=== PATIENT | female | born 1960 | race Caucasian/White ===

== ENCOUNTER 2025-03-09 03:39 | Emergency (ER) | payer BC, SELFPAY ==
[2025-03-09] VITALS (34 sets, daily range): BP systolic 94–139; BP diastolic 45–82; PULSE 62–100; RESP 16–24; TEMP 36.8–37.6; O2SAT 90–98; BMI 42.0
--- NOTE | 2025-03-09 04:05 | ED_ITS ---
HPI - Abdominal Pain General Time Seen by Provider: 04:05 Date Seen: 03/09/25 Chief Complaint: Abdominal Pain Stated Complaint: lower right side pain Time Seen by Provider: 03/09/25 04:05 Source: patient Mode of arrival: ambulatory History of Present Illness HPI narrative: Melody is a 64-year-old female with no significant past medical history, surgical history of cholecystectomy in the past who presents the emergency department for evaluation of generalized body aches. Patient reports that around 12 noon she started shivering, reports generalized body aches, headaches, nausea, cough, freezing chills. Patient denies any fever, denies any chest pain or shortness of breath, patient complains of some generalized back pain, abdominal pain, no localized pain. Denies any dysuria, hematuria. No sick contacts. Patient took ibuprofen this morning prior to arrival. Review of Systems Narrative Past medical history, past surgical history, medications, allergies, family history, and social history were reviewed with the patient. No additional pertinent items. A medically appropriate review of systems was performed with pertinent positives and negatives noted in HPI, all other systems negative. Exam Narrative: Exam Narrative: General: Afebrile, in distress secondary to pain HEENT: Normocephalic, atraumatic, conjunctiva normal. MMM Neck: non-tender, supple Cardio: regular rate. regular rhythm Resp: Normal work of breathing, no respiratory distress, lungs clear bilaterally, no wheezing, rhonchi, rales Chest/Back: no visual signs of trauma, no midline tenderness, +right mid paraspinal TTP, +Right CVA TTP, right side/lateral abdominal TTP Abdomen: soft, non distension, no tenderness, no rebound, no guarding, no peritoneal signs; no abdominal wall TTP, no erythema, no fluctuance, prior healed midline abdominal surgical incision Neuro: alert and fully oriented. CN II-XII grossly intact. Grossly normal strength and sensation in all extremities. MSK: no deformities. Normal range of motion Integumentary/Skin: no rash visualized, normal color Psych: normal affect, normal behavior Const: Vital Signs, click to edit/add: Vital Signs - 24 hr 03/09/25 03:42 03/09/25 06:31 03/09/25 08:01 Temperature 98.7 F Pulse Rate 85 Pulse Rate [Left P ulse Oximeter] 100 86 Respiratory Rate 24 16 Blood Pressure 94/51 L Blood Pressure [Ri ght Upper Arm] 136/81 139/55 L Pulse Oximetry 98 95 94 Oxygen Delivery Me thod Room Air Room Air 03/09/25 08:02 Temperature Pulse Rate 85 Pulse Rate [Left P ulse Oximeter] Respiratory Rate Blood Pressure Blood Pressure [Ri ght Upper Arm] Pulse Oximetry 95 Oxygen Delivery Me thod Course Vital Signs Vital signs: Initial Vital Signs Temperature 98.7 F 03/09/25 03:42 Temperature Source Temporal Artery Scan 03/09/25 03:42 Pulse Rate 100 03/09/25 03:42 Pulse Rhythm Regular 03/09/25 03:42 Respiratory Rate 24 03/09/25 03:42 Blood Pressure 136/81 03/09/25 03:42 Blood Pressure Mean 99 03/09/25 03:42 Blood Pressure Position Sitting 03/09/25 03:42 Pulse Oximetry 98 03/09/25 03:42 Oxygen Delivery Method Room Air 03/09/25 03:42 Vital Signs Temperature 98.7 F 03/09/25 03:42 Pulse Rate 100 03/09/25 03:42 Respiratory Rate 24 03/09/25 03:42 Blood Pressure 136/81 03/09/25 03:42 Pulse Oximetry 98 03/09/25 03:42 Oxygen Delivery Method Room Air 03/09/25 03:42 Temperature 98.7 F 03/09/25 03:42 Pulse Rate 85 03/09/25 08:02 Respiratory Rate 16 03/09/25 06:31 Blood Pressure 94/51 L 03/09/25 08:01 Pulse Oximetry 95 03/09/25 08:02 Oxygen Delivery Method Room Air 03/09/25 06:31 Medications Administered Medications: Discontinued Medications Generic Name Dose Route Start Last Admin Trade Name Freq PRN Reason Stop Dose Admin Acetaminophen 1,000 mg 03/09/25 04:33 03/09/25 04:52 Acetaminophen 500 Mg Tablet PO 03/09/25 04:34 1,000 mg ONCE ONE Administration Diphenhydramine HCl 25 mg 03/09/25 04:33 03/09/25 04:53 Diphenhydramine 50 Mg/Ml Inj IVP 03/09/25 04:34 25 mg ONCE ONE Administration Hydromorphone HCl 0.5 mg 03/09/25 07:29 03/09/25 07:49 Hydromorphone 0.5 Mg/0.5 Ml Inj IVP 03/09/25 07:30 0.5 mg ONCE ONE Administration Sodium Chloride 1,000 mls @ 1,000 mls/hr 03/09/25 04:45 03/09/25 06:27 0.9 % Sodium Chloride 1000 Ml IV 03/09/25 05:44 Infused .Q1H IOANA Infusion Metoclopramide HCl 10 mg 03/09/25 04:33 03/09/25 04:53 Metoclopramide Hcl 5 Mg/Ml Inj IVP 03/09/25 04:34 10 mg ONCE ONE Administration MDM - Abdominal Pain MDM Narrative Medical decision making narrative: Melody is a 64-year-old female with no significant past medical history, surgical history of cholecystectomy in the past who presents the emergency department for evaluation of generalized body aches, chills. Upon arrival patient is nontoxic appearing, afebrile, in distress secondary to pain. Patient hemodynamically stable vital signs within normal limits. Differential diagnosis includes but is not limited to viral illness versus influenza/COVID/RSV versus appendicitis versus cystitis versus pyelonephritis versus nephrolithiasis among others. Upon arrival IV was established, comprehensive labs, urinalysis performed. Patient was treated with Tylenol, 1 L IV fluid bolus, Reglan, Benadryl. I personally reviewed interpreted chest x-ray which is unremarkable with no focal infiltrate, pleural effusion, pneumothorax. Comprehensive labs remarkable for leukocytosis with white blood cell count of 14.9, hemoglobin 13.6, normal lactic acid of 1.5, sodium 132, potassium 3.7, chloride 103, no transaminitis, normal lipase, bilirubin slightly elevated 2.0. Urinalysis with no evidence of acute infection. Negative viral testing for implants the/COVID. I personally reviewed and interpreted CT scan of the abdomen pelvis. Please see radiology report for complete details. Findings include pancreatic mass, deep subcutaneous fluid collection in anterior abdominal wall. This does not contain gas, could represent hematoma or seroma. Abscess is not excluded. Ventral hernia with significant amount of small and large bowel no evidence of incarceration obstruction, or necrosis. On re-evaluation patient with ongoing discomfort was treated with IV Dilaudid for pain. I discussed results with patient, will try to get MRI of the abdomen this morning if possible. On examination patient with no anterior abdominal wall tenderness to palpation, no evidence of erythema. Given patient's clinical presentation, leukocytosis, CT findings I discussed patient management with hospitalist Dr. Lancaster who tentatively is willing to accept the patient. Would like Surgery to evaluate patient and review images. I discussed this patient management with Dr. Olson of surgery who is on her way to the operating room but will evaluate patient in review images after surgery. No prior CT imaging to compare to. Discussed results and plan with patient. Patient signed out to morning provider pending possible MRI, final disposition and re- discussion with hospitalist, surgery. Medical Records Attestation: I reviewed the patient's medical records. Lab Data Attestation: I reviewed the patient's lab results. Labs: Lab Results 03/09/25 03/09/25 03/09/25 Range/Units 03:50 04:35 04:55 WBC 14.93 H (4.50-11.00) K/uL RBC 4.39 (4.00-5.20) m/uL Hgb 13.6 (12.0-16.0) gm/dL Hct 39.7 (33.0-51.0) % MCV 90 (80-100) fL MCH 31 (26-34) pg MCHC 34 (32-36) gm/dL Plt Count 195 (140-440) K/uL Neut % (Auto) 84.0 H (42.0-72.0) % Lymph % (Auto) 6.5 L (20-44) % [place] % (Auto) 7.8 (0.0-11.0) % Eos % (Auto) 0.3 (0.0-7.0) % Baso % (Auto) 0.1 (0.0-3.0) % Neut # (Auto) 12.50 H (1.7-7.0) K/uL Lymph # (Auto) 1.00 (0.90-2.90) K/uL [place] # (Auto) 1.20 H (0.00-0.90) K/UL Eos # (Auto) 0.00 (0.00-0.50) K/uL Baso # (Auto) 0.00 (0.00-0.30) K/uL Abs Immat Gran (auto) 0.20 (0.00-0.30) K/uL Imm/Tot Granulo (auto) 1.3 % Sodium 132 L (135-149) mmol/L Potassium 3.7 (3.6-5.1) mmol/L Chloride 103 (96-114) mmol/L Carbon Dioxide 22 (20-32) mmol/L Anion Gap 7 (7-15) mEq/L BUN 8 (7-30) mg/dL Creatinine 0.8 (0.5-1.5) mg/dL Estimated Creat Clear 59.40 Estimated GFR 82 ml/min Glucose 131 H (60-115) mg/dL Lactate 1.5 (0.5-1.9) mmol/L Calcium 9.5 (8.4-10.6) mg/dL Total Bilirubin 2.0 H (0.1-1.5) mg/dL AST 35 (12-35) U/L ALT 26 (4-35) U/L Alkaline Phosphatase 109 (40-150) U/L Total Protein 7.2 (6.0-8.3) g/dL Albumin 4.0 (3.3-5.0) g/dL Lipase 108 (23-300) U/L Urine Color Yellow (Yellow) Urine Appearance Clear (Clear) Urine pH >= 9.0 H (5.0-8.5) Ur Specific [place] 1.015 (1.000-1.030) Urine Protein 1+ A (Negative) Urine Glucose (UA) Negative (Negative) Urine Ketones Negative (Negative) Urine Blood Negative (Negative) Urine Nitrite Negative (Negative) Urine Bilirubin Negative (Negative) Urine Urobilinogen 1.0 (0.2-1.0) Ur Leukocyte Esterase 1+ A (Negative) Urine RBC 0-2 (0-2) Urine WBC 0-2 (0-5) Ur Squamous Epith Cells Few (None-Few) Urine Bacteria Few A (None) SARS-CoV-2 (PCR) Negative SARS-CoV-2 (Negative) Influenza Type A (PCR) Negative PCR FLU A (Negative) Influenza Type B (PCR) Negative PCR FLU B (Negative) Imaging Data Chest x-ray: Attestation: I have reviewed the pertinent imaging results. Radiologist's impression: Patient: Melody Cummings MR#: [id number] : 1960 Acct:[id number] Loc: ED Service Date: 03/09/[address]: Ordering Physician: Mellisa Daniels M.D. Date of Service: 03/09/25 Procedure(s): XR chest 2V Accession Number(s): [id number] cc: Mellisa Daniels M.D.~ For Patients: As a result of the Cures Act, medical imaging exams and procedure reports are released immediately into your electronic medical record. You may view this report before your referring provider. If you have questions, please contact your health care provider. INDICATION: Cough COMPARISON: None TECHNIQUE: PA and lateral views of the chest were acquired FINDINGS: TUBES AND LINES: None. HEART AND MEDIASTINUM: Top-normal size heart. Tortuous thoracic aorta.. LUNGS AND PLEURAL SPACES: The lungs appear normal.The pleural spaces are unremarkable. OSSEOUS STRUCTURES: Age-appropriate appearance. No acute focal finding. IMPRESSION: Top-normal size heart. No evidence of active pulmonary disease. Dictated by Venancio Duke MD @ 03/09/2025 5:07:13 AM (Electronically Signed) CT scan - abdomen: Attestation: I have reviewed the pertinent imaging results. Radiologist's impression: Ordering Physician: Mellisa Daniels M.D. Date of Service: 03/09/25 Procedure(s): CT abdomen pelvis w con Accession Number(s): [id number] cc: Mellisa Daniels M.D.; Provider,Not a Local~ For Patients: As a result of the Cures Act, medical imaging exams and procedure reports are released immediately into your electronic medical record. You may view this report before your referring provider. If you have questions, please contact your health care provider. INDICATION: Abdominal pain. Chills. COMPARISON: None TECHNIQUE: CT examination of the abdomen and pelvis was performed following the uneventful intravenous administration of 95 cc of Isovue 370. Thin section axial images were obtained from the lung bases through the pubic symphysis. Oral contrast was not administered. Please note that all CT scans at this facility use dose modulation, iterative reconstruction, and/or weight-based dosing when appropriate to reduce radiation dose to as low as reasonably achievable. FINDINGS: LUNG BASES: Minimal bibasilar subsegmental atelectasis.Heart size top-normal at the lung bases. Small hiatal hernia. LIVER/BILIARY SYSTEM:The liver is normal in size and configuration. There is no focal mass and there is no intra- or extra hepatic biliary ductal dilatation.There has been a cholecystectomy ADRENALS: Normal KIDNEYS, URETERS and BLADDER:Normal size kidneys. A few scattered low-density cortical lesions are noted that are too small to characterize but likely benign. No hydronephrosis or hydroureter. The bladder appears normal. SPLEEN:Normal appearance. PANCREAS: There is a well-circumscribed mass arising from the pancreatic head anteriorly. This is exophytic and measures 2.7 x 2.1 centimeters. This is not simple cystic. Recommend a multiphase MRI for further evaluation at a clinically appropriate time. No pancreatic ductal dilation. RETROPERITONEUM and MESENTERY: There is no mass, adenopathy or aortic aneurysm. GASTROINTESTINAL SYSTEM: There is no evidence of diverticulitis, colitis, mechanical obstruction, or appendicitis. The small bowel as visualized appears normal.There is a hernia involving the bowel as described below. There is diverticulosis. PELVIS: No mass, adenopathy or free fluid. OSSEOUS STRUCTURES and ABDOMINAL WALL: Age-appropriate appearance of the osseous structuresthere are findings suggesting a prior ventral hernia repair. There is a discontinuity in what is presumed to be the hernia mesh with a significant amount of small bowel, colon and omentum in the space anterior to the presumed mesh and the posterior aspect of the anterior abdominal wall. This does not appear to be incarcerated or associated with ischemia or mechanical obstruction. There is also an elliptical deep subcutaneous fluid collection which is prior postsurgical collection in the midline extending from about the umbilicus towards the mid pelvis. This measures 8.3 x 3.3 by 9.2 centimeters in its medial-lateral, anteroposterior and craniocaudal respective dimensions. This could represent an organized hematoma or seroma though an abscess is possible. Correlate with the clinical findings. This does not contain gas OTHER: No free fluid or free air. IMPRESSION: 1. Well-circumscribed mass arising from the anterior aspect of the pancreatic head. This is exophytic and measures 2.7 x 2.1 centimeters. No biliary ductal dilation or pancreatic ductal dilation. This should be characterized by multiphase MRI at some point in the near future. 2. Elliptical deep subcutaneous fluid collection in the anterior abdominal wall measuring 8.3 x 3.3 x 9.2 centimeters. This has a well organized wall which is slightly hyperdense and is probably enhancing. This does not contain gas. This could represent an organized hematoma or seroma. This is probably a postoperative fluid collection. An abscess is not excluded. Correlate with surgical history and clinical findings. 3. Ventral hernia as described containing a significant amount of small and large bowel. However, there is no evidence that this is incarcerated, associated with obstruction or associated with necrosis. 4. Other nonacute appearing findings as above Please note that all CT scans at this facility use dose modulation, iterative reconstruction, and/or weight-based dosing when appropriate to reduce radiation dose to as low as reasonably achievable. Dictated by Venancio Duke MD @ 03/09/2025 6:19:38 AM Discharge Plan Discharge Follow Up/Referrals: Provider,Not a Local [Primary Care Provider, Family Practice]
--- NOTE | 2025-03-09 04:33 | CRLHL7_ITS ---
For Patients: As a result of the Cures Act, medical imaging exams and procedure reports are released immediately into your electronic medical record. You may view this report before your referring provider. If you have questions, please contact your health care provider. INDICATION: Cough COMPARISON: None TECHNIQUE: PA and lateral views of the chest were acquired FINDINGS: TUBES AND LINES: None. HEART AND MEDIASTINUM: Top-normal size heart. Tortuous thoracic aorta.. LUNGS AND PLEURAL SPACES: The lungs appear normal.The pleural spaces are unremarkable. OSSEOUS STRUCTURES: Age-appropriate appearance. No acute focal finding. IMPRESSION: Top-normal size heart. No evidence of active pulmonary disease. Dictated by Venancio Duke MD @ 03/09/2025 5:07:13 AM (Electronically Signed)
[2025-03-09 04:45] LABS: Lactate* 1.5 mmol/L (0.5-1.9)
[2025-03-09] MEDS: ACETAMINOPHEN 500 MG TABLET 1000 MG PO (04:52)
[2025-03-09] MEDS: METOCLOPRAMIDE HCL 5 MG/ML INJ 10 MG IVP (04:53)
[2025-03-09 05:12] LABS: Hematocrit* 39.7 % (33.0-51.0); Hemoglobin* 13.6 gm/dL (12.0-16.0); Immature Granulocytes Abs Auto 0.20 K/uL (0.00-0.30); Immature Granulocytes Pct Auto 1.3 %; Lymphocytes Absolute Auto 1.00 K/uL (0.90-2.90); Mean Corpuscular HGB Conc 34 gm/dL (32-36); Mean Corpuscular Hemoglobin 31 pg (26-34); Mean Corpuscular Volume 90 fL (80-100); Red Blood Count* 4.39 m/uL (4.00-5.20); Slide Review Reflex No; White Blood Count* 14.93 K/uL (4.50-11.00)
[2025-03-09 05:26] LABS: Appearance Urine Clear (Clear)
[2025-03-09 05:28] LABS: PCR FLU A Negative PCR FLU A (Negative); PCR FLU B Negative PCR FLU B (Negative); SARS PCR* Negative SARS-CoV-2 (Negative)
--- OUTSIDE RECORDS SUMMARY | 2025-03-09 05:30 | XMS_ITS | Clinical Summary ---
Author Organization [facility] Address [address] [place] [address] Care Team Providers Care Vocal Music Instructor Name Role Phone Crista Randhawa MD Primary Care Provider [phone] Source Comments You are receiving this document as you are listed as the primary care provider,follow-up provider, or the patient has been referred to you for consultation.This is in compliance with the Medicare andOhio[facility] Hospitalcaid EHR Incentive Program,which states Providers who transition their patient to another setting of careor provider of care or refers their patient to another provider of care shouldprovide summary care record for each transition of care or referral. [facility] Allergies No known active allergies Medications MedicationSigDispense QuantityRefillsLast FilledStart DateEnd DateStatus ibuprofen (MOTRIN) 600 MG tablet Indications:Abdominal herniaTake 1 tablet by mouth 3 times daily as needed for Pain. 90 tablet ctive cyclobenzaprine (FLEXERIL) 10 MG tablet Indications:Right buttock painTake 1 Tablet (10 mg) by mouth three times a day as needed for Muscle Spasms. 30 Tablet 5Active furosemide (LASIX) 40 MG tablet Indications:Calf swellingTake 1 Tablet (40 mg) by mouth daily as needed (fluid retention/swelling). 90 Tablet 6Active montelukast (SINGULAIR) 10 MG tablet Indications:Mild persistent asthma, uncomplicated (HRC)Take 1 Tablet (10 mg) by mouth daily. 90 Tablet 5Active predniSONE (DELTASONE) 20 MG tablet Indications:Chronic coughTake 3 tabs daily for 4 days, then 2 tabs daily for 4 days, then 1 tab daily for 4 days, then 0.5 tabs daily for 4 days 26 Tablet 5Active levothyroxine (SYNTHROID) 137 MCG tablet Indications:Hypothyroidism, unspecified type (HRC)Take 1 Tablet (137 mcg) by mouth daily. 90 Tablet 5Active Tiotropium Ajo Monohydrate (SPIRIVA RESPIMAT) 1.25 MCG/ACT AERS Indications:Mild persistent asthma, uncomplicated (HRC)Inhale 2 Act (2.5 mcg) daily. 3 Each 5Active hydrOXYzine HCl (ATARAX) 25 MG tablet Indications:Anxiety (HRC)Take 1 Tablet (25 mg) by mouth three times a day as needed for Anxiety. 90 Tablet 5Active ALBUterol sulfate HFA (VENTOLIN HFA) 108 (90 Base) MCG/ACT inhaler Indications:Mild persistent asthma, uncomplicated (HRC)Inhale 1-2 Puffs every 4 hours as needed for Wheezing. Pharmacy may substitute albuterol HFA inhalers based on insurance 3 Each 5Active albuterol 2.5 mg/3 mL, 0.083%, (PROVENTIL) nebulizer solution Indications:Mild persistent asthma, uncomplicated (HRC)Inhale 1 Each (2.5 mg) every 6 hours as needed for Wheezing. 180 mL 605Active zolpidem (AMBIEN) 10 MG tablet Indications:Chronic insomniaTake 1 Tablet (10 mg) by mouth at bedtime as needed. 30 Tablet 505Active fluticasone propionate (FLONASE) 50 MCG/ACT nasal solution Indications:Chronic sinusitis, unspecified locationPlace 2 Sprays into both nostrils daily. 3 Each 5Active fluticasone-vilanterol (BREO ELLIPTA) 200-25 MCG/ACT inhaler Indications:Mild persistent asthma without complication (HRC)Inhale 1 Dose daily. Rinse mouth/gargle after use 60 Each 1105Active Active Problems ProblemNoted DateDiagnosed DatePrimary osteoarthritis, right hand05/08/2024 Pazdrzd2911/17/2023ontrolled substance agreement dszpim4410/15/2016 Overview (10/15/2016): Diagnosis: Insomnia Medication: Ambien Controlled Substance Agreement reviewed and signed: yes Date agreement signed: 10/15/2016 Refill plan: 6 month script, needs to be seen every 6 months Clinician: Crista Randhawa MD Mild persistent thgcop9011/04/20133256Yelzaswmbcafrg63/29/2006 Overview (11/16/2016): Hypothyroidism On Replacement Resolved Problems ProblemNoted DateDiagnosed DateResolved DateAcute asthma ogatjqmunkli84/23/2018 09/28/2017Influenza B0Acute sjamsyvnflv37 Low back painIntrinsic asthma with status asthmaticus Chronic mqgagkomzgksxr74/19/Asthma with acute cgtygkmmkefx83/18/Mild persistent asthma with exacerbation 05/08/Patellar ifdugpfnqg12/05/Lateral epicondylitis 11/01/ Overview (11/16/2016): Lateral epicondylitis of left elbow Incisional Overview (11/16/2016): LW Modifier: multiply recurrent ; Hernia Incisional Osteoarthrosis involving lower leg08/24/ Overview (11/16/2016): DJD Knee Allergic state07/18/ Overview (11/16/2016): Allergy NOS Joint derangement, lower leg Overview (11/16/2016): Knee Deranged NOS Morbid kbslwhc7305/08/2024 Overview (05/08/2024): This problem was marked as resolved by a user in a SmartForm. Immunizations ImmunizationAdministration DatesNext DueFlu Vac Preserv Free (3+yrs)05/10/2012, 12/04/2008Influenza (Flucelvax), Preserv Free QIV104/29/2016Influenza IIV4 (Quadrivalent) 0.5mL (59810)05/02/2022,01/30/2021,02/01/2020,01/22/2019, 02/04/2013Moderna Monovalent 12+08/11/2020,1PCV20 (Qcpnoyp18)05/02/2022 PPSV23 (Pneumovax)07/16/2007TDAP (BOOSTRIX)02/04/2013Td08/23/2005Tdap05/29/2023 Family History Medical HistoryRelationNameCommentsCancer, ColonBirth FatherClydeCoronary Artery DiseaseBirth FatherClydeDiabetesBirth FatherClydeHeart DiseaseBirth FatherClyde4 stents placedStrokeBirth FatherClydeCancerBrother 1StevenliverCancer, Lung Brother 1StevenCancerBrother 2DaniellungAmblyopia/StrabismusNegative Family HistoryAnesthesia ReactionNegative Family HistoryArthritisNegative Family HistoryBlindnessNegative Family HistoryBroken BonesNegative Family History Cancer, BreastNegative Family HistoryCancer, EndometrialNegative Family History Cancer, OvaryNegative Family HistoryCataractNegative Family HistoryClotting DisorderNegative Family HistoryDiethylstilbestrol ExposureNegative Family HistoryGlaucomaNegative Family HistoryHypertensionNegative Family HistoryMacular DegenerationNegative Family HistoryOsteoporosisNegative Family HistoryRetinal DetachmentNegative Family HistoryRheumatologic DiseaseNegative Family History Thyroid DisorderNegative Family HistoryRelationNameStatusCommentsBirth Father ZhfpvWvzrd86Psavp MotherDeceased (Age 62)pneumoniaBrother 1StevenDeceasedBrother 2DanielAliveBrother 3AliveMaternal GrandfatherDeceasedMaternal Grandmother DeceasedPaternal GrandfatherDeceasedPaternal GrandmotherDeceased Social History Tobacco UseTypesPacks/DayYears UsedDateSmoking Tobacco: FormerCigarettes0.318.1 03/27/1974 - 05/07/1992Smokeless Tobacco: Never Tobacco Cessation:Counseling Given: Not Answered Alcohol UseStandard Drinks/WeekCommentsNo0 (1 standard drink = 0.6 oz pure alcohol)PHQ-2AnswerDate RecordedPHQ-2 Lzteq038Financial Resource Strain AnswerDate RecordedIs it hard for you to pay for the very basics like food, housing, medical care or heating?No05/29/2023Food InsecurityAnswerDate Recorded Does your food run out before you have the money to buy more?05/29/2023 Transportation NeedsAnswerDate RecordedDoes a lack of transportation keep you from your medical appointments or from getting your medications?No05/29/2023 CommentsNoSex and Gender InformationValueDate RecordedSex Assigned at BirthNot on fileLegal RcjGqjmes72/10/2012 6:03 AM CDTGender IdentityNot on file Sexual OrientationNot on fileOccupationIndustryJob Start DateJob End Dateadm assistNot on fileNot on fileNot on file Last Filed Vital Signs Vital SignReadingTime TakenCommentsBlood Bhqkwrun658/8705/08/2024 3:49 PM FITNESS PROFESSIONAL Covvw775205/08/2024 3:49 PM GZEUknefrjyhji54.7 ??C (98 ??F)05/08/2024 3:49 PM FITNESS PROFESSIONAL Respiratory Vbue823510/02/2023 7:59 AM CDTOxygen Iqlngoznba08%05/08/2024 3:49 PM CSTInhaled Oxygen Concentration--Lizbsd055.3 kg (285 lb)11/01/2024 9:38 AM CDTPt reported.Aenmwg047.7 cm (5' 8)05/08/2024 3:43 PM CSTBody Mass Index43.33 05/08/2024 3:43 PM FITNESS PROFESSIONAL Plan of Treatment Health MaintenanceDue DateLast DoneCommentsRSV Vaccine (1 - Risk 50-74 years 1- dose series)2010Zoster/Shingles Vaccine (1 of 2)2010sthma ACT (score of 20 or higher)Mammogram/07/2023, 07/09/2022, 04/24/2021, Additional history existsCOVID-19 Vaccine ( - season)505/, 07/14/2020Influenza Vaccine (#1)2024 05/02/2022, 01/30/2021, 02/01/2020, Additional history existsCholesterol /09/2019, 08/09/2016, 07/29/2015, Additional history existsAdult Preventive Visit/02/2025, 05/29/2023, 05/02/2022, Additional history existsPrediabetes: JLRD2T84/02/2025, 12/26/2022, 05/02/2022, Additional history existsFIT Colon Cancer Kovlkqixe92/, 01/04/2023, 08/25/2021, Additional history existsMed Monitoring TSH07/16/2025 07/16/2024, 05/08/2024, 12/26/2022, Additional history existsCervical Cancer Xwswvlcmv48/04/245372/06/2023, 05/29/2023, 07/20/2018, Additional history exists DTaP/Tdap/Td Vaccine (3 - Tdap)/06/2023, 02/04/2013, 08/23/2005HIV Screening (Preventive Services)Hblsjympe95/16/2017Hep C Screening (Preventive Services)Aobjblijq97/16/2017Pneumococcal Vaccine 50+ AsgWpnqdgrkn31/06/2023, 07/16/2007HepA VaccineAged OutNo longer eligible based on patient's age to complete this topicHepB VaccineAged OutNo longer eligible based on patient's age to complete this topicHib VaccineAged OutNo longer eligible based on patient's age to complete this topicIPV (Polio) VaccineAged OutNo longer eligible based on patient's age to complete this topicMCV4 VaccineAged OutNo longer eligible based on patient's age to complete this topicMeningococcal B VaccineAged OutNo longer eligible based on patient's age to complete this topic Procedures Procedure NamePriorityDate/TimeAssociated DiagnosisCommentsTSH, SENSITIVERoutine 07/16/2024 5:42 PM CDT Hypothyroidism, unspecified type (HRC) ZOIHddkjdv91/14/2025 8:00 AM CDT Screening for colon cancer HGB R4VCeudinu76/12/2025 4:23 PM FITNESS PROFESSIONAL Prediabetes MM MAMMOGRAM SCREENING BILAT W 3D CHRISTIANO W FGZXsmnbas63/05/2024 3:33 PM CDT Visit for screening mammogram HPV WITH 16 18 GENOTYPING, CERVICAL/FUQICPZZRMJMFdaynwe30/04/2024 4:31 PM FITNESS PROFESSIONAL Special screening examination for human papillomavirus (HPV) LIPID PANEL & DIRECT LDL (IF NEEDED)Rermzva0902/01/2020 11:01 AM FITNESS PROFESSIONAL Screening cholesterol level HIV-1 P24 AND HIV-1/HIV-2 OOBQVBCJCVFbxyfbg76/16/2017 9:02 AM CDT Screen for STD (sexually transmitted disease) HEPATITIS C ANTIBODY, WITH REFLEX (ANTI-HCV)Yfdmvya2908/09/2016 9:02 AM CDT Screen for STD (sexually transmitted disease) from Last 3 Months or Most Recently Relevant to Health Maintenance Results * TSH (Expected: 6 weeks) (07/16/2024 5:42 PM CDT)ComponentValueRef RangeTest MethodAnalysis TimePerformed AtPathologist SignatureTSH, Sensitive0.530.30 - 4.50 uIU/mL07/16/2024 9:48 PM CDTMETHODIST LABORATORYSpecimen (Source) Anatomical Location / LateralityCollection Method / VolumeCollection Time Received TimeBloodVenipuncture / Qqcprpb5607/16/2024 5:42 PM CDT07/16/2024 6:01 PM CDT Narrative Authorizing ProviderResult TypeResult StatusCrista Randhawa MDLAB_1Final Result Performing OrganizationAddressCity/State/ZIP CodePhone Number [facility] [address] [place], [place] [address] * FIT, OCCULT BLOOD, STOOL (06/07/2024 8:00 AM CDT)ComponentValueRef RangeTest MethodAnalysis TimePerformed AtPathologist SignatureFIT Specimen 1Negative Vucopbib13/15/2025 2:06 AM CDCROSSROADS BEHAVIORAL HEALTH LABSpecimen (Source) Anatomical Location / LateralityCollection Method / VolumeCollection Time Received TimeStoolNon-blood Collection / Yikmwsz8706/07/2024 8:00 AM CDT 06/07/2024 10:30 PM CDT Narrative Authorizing ProviderResult TypeResult StatusCrista Randhawa MDLAB_1Final Result Performing OrganizationAddressCity/State/ZIP CodePhone Number [facility] [address] * (ABNORMAL) Hgb A1C (05/08/2024 4:23 PM FITNESS PROFESSIONAL)ComponentValueRef RangeTest Method Analysis TimePerformed AtPathologist SignatureHemoglobin A1C6.3(H)<=5.6 % 05/09/2024 8:28 AM CSTHUN[facility] LABEstimated Average Glucose (Calc)134< 117 mg/dL05/09/2024 8:28 AM [facility] LABComment: Estimated average glucose (eAG) converts A1c into glucose units (mg/dL) and estimates average glucose over the past approximately 3 months. The eAG reference interval (<117 mg/dL) corresponds to an A1c of <5.7%.Specimen (Source)Anatomical Location / LateralityCollection Method / VolumeCollection TimeReceived TimeBloodVenipuncture / Wbfvtad9305/08/2024 4:23 PM CST05/08/2024 4:23 PM FITNESS PROFESSIONAL Narrative [facility] - 05/09/2024 8:28 AM FITNESS PROFESSIONAL For patients not previously diagnosed with diabetes: 5.7-6.4%: Increased risk for diabetes 6.5% and greater: Diagnostic for diabetes For patients diagnosed with diabetes: <8.0%: Goal of therapy for ages 18-75 Clinicians may recommend a higher or lower goal for specific individuals. Authorizing ProviderResult TypeResult StatusCrista Randhawa MDLAB_1Final Result Performing OrganizationAddressCity/State/ZIP CodePhone Number [facility]ITALBion[facility] [address] * MM Mammogram Screening Bilat W 3D Christiano W CAD (10/30/2023 3:33 PM CDT) Anatomical RegionLateralityModalityBreastBilateralMammographySpecimen (Source) Anatomical Location / LateralityCollection Method / VolumeCollection Time Received Time Impressions 10/30/2023 3:55 PM CDT : ACR BI-RADS Category 1: Negative RECOMMENDATION: Follow Up Imaging in 12 months - Bilateral The results and recommendations of this examination will be communicated to the patient. Narrative 10/30/2023 3:55 PM CDT MM MAMMOGRAM SCREENING BILAT W 3D CHRISTIANO W CAD performed on 10/30/23 Compared to: 07/09/2022 MM Mammogram Screening Bilat W 3D Christiano W CAD, 04/24/2021 MM Mammogram Screening Bilat W CAD, and 12/23/2019 MM Mammogram Screening Bilat W CAD ?? FINDINGS: Bilateral screening mammogram was performed with the assistance of Computer-Aided Detection and breast tomosynthesis. There are scattered areas of fibroglandular density. There is no radiographic evidence of malignancy. ?? Authorizing ProviderResult TypeResult StatusCrista Randhawa MDRAD MAMFinal Result * HPV with 16 18 Genotyping (05/29/2023 4:31 PM FITNESS PROFESSIONAL)ComponentValueRef RangeTest MethodAnalysis TimePerformed AtPathologist SignatureHPV High Risk Type 16 PCR Not DetectedNot cnnfnzub33/28/2024 11:24 AM CDTREGIONS HOSPITALHPV High Risk Type 18 PCRNot DetectedNot Mrnylkoi53/28/2024 11:24 AM CDTREGIONS HOSPITALHPV High Risk Other Than 16/18Not DetectedNot /28/2024 11:24 AM CDT [facility]ITALSpecimen (Source)Anatomical Location / LateralityCollection Method / VolumeCollection TimeReceived TimeCervical BroomENTIRE ENDOCERVIX / Bpswdmt2105/29/2023 4:31 PM CST05/29/2023 4:43 PM FITNESS PROFESSIONAL Narrative Authorizing ProviderResult TypeResult StatusCrista Randhawa MDLAB_1Final Result Performing OrganizationAddressCity/State/ZIP CodePhone Number [address] [address], [facility] * Lipid Panel - LDLD If Trig High (02/01/2020 11:01 AM FITNESS PROFESSIONAL)ComponentValueRef RangeTest MethodAnalysis TimePerformed AtPathologist EzsvqzqyvHkscsmyjszs9558 - 199 mg/dL02/01/2020 1:39 PM CSTMETHODIST PSAVZXMDQAXhmuikffnnnl86<=149 mg/dL 02/01/2020 1:39 PM CSTMETHODIST LABORATORYHDL Gezegcekmjt20>=40 mg/dL 02/01/2020 1:39 PM CSTMETHODIST LABORATORYLDL, Brmegaaike28<130 mg/dL 02/01/2020 1:39 PM CSTMETHODIST LABORATORYNon HDL Chol, Mevehvkxpk35nl/dL 02/01/2020 1:39 PM CSTMETHODIST LABORATORYCholesterol/HDL Ratio2.6104/02/2019 1:39 PM CSTMETHODIST LABORATORYHours Hjrflkw356/07/2020 1:39 PM CSTBLBAYHEALTH [facility] (PN)Specimen (Source)Anatomical Location / LateralityCollection Method / VolumeCollection TimeReceived TimeBloodVenipuncture / Unknown 02/01/2020 11:01 AM CST02/01/2020 11:02 AM FITNESS PROFESSIONAL Narrative Authorizing ProviderResult TypeResult StatusCrista Randhawa MDLAB_1Final Result Performing OrganizationAddressCity/State/ZIP CodePhone Number [facility] [address] [place] [address], [facility] (PN) [address] [place] [address], [facility] [phone] * HIV-1 p24 AND HIV-1/HIV-2 ANTIBODIES (08/09/2016 9:02 AM CDT)ComponentValueRef RangeTest MethodAnalysis TimePerformed AtPathologist SignatureHIV-1 p24 Ag and HIV-1/HIV-2 AbNonreactiveNonreactivePN SOFTSpecimen (Source)Anatomical Location / LateralityCollection Method / VolumeCollection TimeReceived Time 08/09/2016 9:02 AM CDT08/09/2016 1:06 PM CDT Narrative PN [facility] - 08/09/2016 3:13 PM CDT Performed at [facility], [address] [place] [address] CLIA number [id number] Authorizing ProviderResult TypeResult StatusCrista VICENTE_1Final Result Performing OrganizationAddressCity/[facility]/ZIP CodePhone Number PN [facility] [address] [place] [address] * Hepatitis C Virus Tessa with Reflex (08/09/2016 9:02 AM CDT)ComponentValueRef RangeTest MethodAnalysis TimePerformed AtPathologist SignatureHepatitis C AntibodyNonreactiveNonreactivePN SOFTSpecimen (Source)Anatomical Location / LateralityCollection Method / VolumeCollection TimeReceived Time08/09/2016 9:02 AM CDT08/09/2016 1:06 PM CDT Narrative PN [facility] - 08/09/2016 3:13 PM CDT Performed at [facility], [address] [place] [address] CLIA number [id number] Authorizing ProviderResult TypeResult Isha VICENTE_1Final Result Performing OrganizationAddressCity/State/ZIP CodePhone Number [facility] [address] [place] [address] from Last 3 Months or Most Recently Relevant to Health Maintenance Insurance Advance Directives * Full Code (Latest Code Status on File) Date ActivatedDate InactivatedComments10/03/2017 5:03 PM10/03/2017 8:10 PMFull code in effect for 30 days * Full Code Date ActivatedDate InactivatedComments06/16/2017 5:30 PM06/22/2017 5:06 PM * Full Code Date ActivatedDate FsgnohpckxwJbflrylc93/4/2013 1:02 PM10 5:20 PM * Full Code Date ActivatedDate InactivatedComments07/12/2012 6:57 PM07/19/2012 5:21 PM * Full Code Date ActivatedDate InactivatedComments05/07/2012 11:16 PM2 5:43 PM Care Teams Team MemberRelationshipSpecialtyStart DateEnd Date Crista Randhawa MD [address] [place] [address] [facility] - General11/04/13
[2025-03-09 05:33] LABS: Anion Gap 7 mEq/L (7-15); Blood Urea Nitrogen* 8 mg/dL (7-30); Carbon Dioxide* 22 mmol/L (20-32); Chloride* 103 mmol/L (96-114); Creatinine* 0.8 mg/dL (0.5-1.5); Est. Creatinine Clearance* 59.40; Estimated Glomerular Filt Rate 82 ml/min; Potassium* 3.7 mmol/L (3.6-5.1); Sodium* 132 mmol/L (135-149)
[2025-03-09 05:34] LABS: Alanine Aminotransferase* 26 U/L (4-35); Albumin* 4.0 g/dL (3.3-5.0); Alkaline Phosphatase* 109 U/L (40-150); Aspartate Amino Transferase* 35 U/L (12-35); Bilirubin Total* 2.0 mg/dL (0.1-1.5); Calcium* 9.5 mg/dL (8.4-10.6); Glucose* 131 mg/dL (60-115); Total Protein* 7.2 g/dL (6.0-8.3)
--- NOTE | 2025-03-09 05:37 | CRLHL7_ITS ---
For Patients: As a result of the 21st Century Cures Act, medical imaging exams and procedure reports are released immediately into your electronic medical record. You may view this report before your referring provider. If you have questions, please contact your health care provider. INDICATION: Abdominal pain. Chills. COMPARISON: None TECHNIQUE: CT examination of the abdomen and pelvis was performed following the uneventful intravenous administration of 95 cc of Isovue 370. Thin section axial images were obtained from the lung bases through the pubic symphysis. Oral contrast was not administered. Please note that all CT scans at this facility use dose modulation, iterative reconstruction, and/or weight-based dosing when appropriate to reduce radiation dose to as low as reasonably achievable. FINDINGS: LUNG BASES: Minimal bibasilar subsegmental atelectasis.Heart size top-normal at the lung bases. Small hiatal hernia. LIVER/BILIARY SYSTEM:The liver is normal in size and configuration. There is no focal mass and there is no intra- or extra hepatic biliary ductal dilatation.There has been a cholecystectomy ADRENALS: Normal KIDNEYS, URETERS and BLADDER:Normal size kidneys. A few scattered low-density cortical lesions are noted that are too small to characterize but likely benign. No hydronephrosis or hydroureter. The bladder appears normal. SPLEEN:Normal appearance. PANCREAS: There is a well-circumscribed mass arising from the pancreatic head anteriorly. This is exophytic and measures 2.7 x 2.1 centimeters. This is not simple cystic. Recommend a multiphase MRI for further evaluation at a clinically appropriate time. No pancreatic ductal dilation. RETROPERITONEUM and MESENTERY: There is no mass, adenopathy or aortic aneurysm. GASTROINTESTINAL SYSTEM: There is no evidence of diverticulitis, colitis, mechanical obstruction, or appendicitis. The small bowel as visualized appears normal.There is a hernia involving the bowel as described below. There is diverticulosis. PELVIS: No mass, adenopathy or free fluid. OSSEOUS STRUCTURES and ABDOMINAL WALL: Age-appropriate appearance of the osseous structuresthere are findings suggesting a prior ventral hernia repair. There is a discontinuity in what is presumed to be the hernia mesh with a significant amount of small bowel, colon and omentum in the space anterior to the presumed mesh and the posterior aspect of the anterior abdominal wall. This does not appear to be incarcerated or associated with ischemia or mechanical obstruction. There is also an elliptical deep subcutaneous fluid collection which is prior postsurgical collection in the midline extending from about the umbilicus towards the mid pelvis. This measures 8.3 x 3.3 by 9.2 centimeters in its medial-lateral, anteroposterior and craniocaudal respective dimensions. This could represent an organized hematoma or seroma though an abscess is possible. Correlate with the clinical findings. This does not contain gas OTHER: No free fluid or free air. IMPRESSION: 1. Well-circumscribed mass arising from the anterior aspect of the pancreatic head. This is exophytic and measures 2.7 x 2.1 centimeters. No biliary ductal dilation or pancreatic ductal dilation. This should be characterized by multiphase MRI at some point in the near future. 2. Elliptical deep subcutaneous fluid collection in the anterior abdominal wall measuring 8.3 x 3.3 x 9.2 centimeters. This has a well organized wall which is slightly hyperdense and is probably enhancing. This does not contain gas. This could represent an organized hematoma or seroma. This is probably a postoperative fluid collection. An abscess is not excluded. Correlate with surgical history and clinical findings. 3. Ventral hernia as described containing a significant amount of small and large bowel. However, there is no evidence that this is incarcerated, associated with obstruction or associated with necrosis. 4. Other nonacute appearing findings as above Please note that all CT scans at this facility use dose modulation, iterative reconstruction, and/or weight-based dosing when appropriate to reduce radiation dose to as low as reasonably achievable. Dictated by Venancio Duke MD @ 03/09/2025 6:19:38 AM (Electronically Signed)
[2025-03-09 09:57] LABS: Lactate* 1.0 mmol/L (0.5-1.9)
[2025-03-09] MEDS: PIPERACILLIN/TAZOBACTAM 4.5 GM in 0.9 % SODIUM CHLORIDE Mini-bag 100 ML IVPB (10:32)
[2025-03-09 10:34] LABS: Procalcitonin* 0.91 ng/mL (<0.50)
[2025-03-09] MEDS: PIPERACILLIN/TAZOBACTAM 3.375 GM in 0.9 % SODIUM CHLORIDE Mini-bag 100 ML IVPB (16:34)
== END 2025-03-09 17:53 | disposition short-term general hospital (02) ==
PROVIDERS: Emergency Medicine; Emergency Provider Family Medicine
DX: K86.9 Disease of pancreas, unspecified (principal); K43.9 Ventral hernia without obstruction or gangrene; R05.1 Acute cough; R68.83 Chills (without fever); Z90.49 Acquired absence of other specified parts of digestive tract
CPT/HCPCS: 36415; 71046; 74177; 80053; 81001; 83605; 83690; 84145; 85025; 87040; 87086; 87636; 96361; 96374; 96375; 99285; A9270; J1171; J1200; J2543; J2765; J7030; Q9967

== ENCOUNTER 2025-03-09 16:55 | Outpatient (CLI) | payer BC, SELFPAY | END 2025-03-09 16:56 | disposition home or self-care (01) | LOC: AMB 03-12 02:10 | PROVIDERS: Visit Provider Family Medicine | DX: K86.9 Disease of pancreas, unspecified (principal) | CPT/HCPCS: A0425; A0427 ==